=== PATIENT | female | born 1945 | race Caucasian/White ===

== ENCOUNTER 2023-02-25 10:16 | Emergency (ER) | payer MEDICARE, OTHER ==
[~2023-02-25] VITALS: Ht 157.5 cm; Wt 75.0 kg
[2023-02-25] MEDS ORDERED: PANT40TA54 PO (10:30)
[2023-02-25] MEDS ORDERED: DICY20TA95 PO (10:30)
[2023-02-25] MEDS ORDERED: AMLO10TA55 PO (10:30)
[2023-02-25] MEDS ORDERED: LOSA100T59 PO (10:30)
[2023-02-25] MEDS ORDERED: LIDO1ADH83 TP (14:03)
[2023-02-25] MEDS ORDERED: LIDOCAINE 5% TRANSDERMAL PATCH TD ONE (14:15)
[2023-02-25 15:01] VITALS: BP 138/69
== END 2023-02-25 15:06 | disposition home or self-care (01) ==
LOC: EMS 10:21
DX: S90.32XA Contusion of left foot, initial encounter (principal); I10 Essential (primary) hypertension; Z88.0 Allergy status to penicillin; W19.XXXA Unspecified fall, initial encounter; Y93.89 Activity, other specified; Y92.89 Other specified places as the place of occurrence of the external cause; Y99.8 Other external cause status
CPT/HCPCS: 99283